=== PATIENT | female | born 1935 | race Caucasian/White ===

== ENCOUNTER 2024-08-11 13:31 | Inpatient (IN) | payer MEDICARE, OTHER ==
[2024-08-11] MEDS ORDERED: Ondansetron ODT 4 MG TAB PO PRN (14:39)
[2024-08-12] MEDS ORDERED: Non-Formulary Item 1 EACH (Atenolol [Atenolol] 100 MG Tablet) PO SCH (09:00)
[2024-08-12 09:55] LABS: #Basophils 0.1 thou/uL (0.0-0.2); #Eosinophils 0.1 thou/uL (0.0-0.7); #Lymphocytes 2.1 thou/uL (1.20-3.40); #Monocytes 0.7 thou/uL (0.11-0.59); #Neutrophils 3.7 thou/uL (1.40-6.50); %Basophils 0.9 % (0.0-1.0); %Eosinophils 1.9 % (0.0-10.0); %Lymphocytes 31.6 % (21.0-51.0); %Monocytes 10.2 % (0.0-10.0); %Neutrophils 55.4 % (42.0-75.0); Hematocrit 37.5 % (36.0-47.0); Hemoglobin 13.3 g/dL (12.0-16.0); Mean Corpuscular HGB CONC 35.4 g/dL (32.0-36.0); Mean Corpuscular Hemoglobin 32.5 pg (27.0-31.0); Mean Corpuscular Volume 91.9 fl (78.0-98.0); Mean Platelet Volume 6.8 fL (7.4-10.4); Platelet Count 342 10x3/uL (130-400); RBC Distribution Width 11.3 % (11.5-14.5); Red Blood Cell (RBC) Count 4.08 mill/uL (4.20-5.40); White Blood Cell (WBC) Count 6.7 10x3/uL (4.8-10.8)
[2024-08-12 10:19] LABS: ALT (SGPT) 12 U/L (Less than 34); AST (SGOT) 21 U/L (11-34); Albumin 3.6 g/dL (3.1-4.5); Alkaline Phosphatase 118 U/L (40-110); Anion Gap 12 mmol/L (10-20); BUN (Urea Nitrogen) 6 mg/dL (9.8-20.1); Bilirubin, Total 0.7 mg/dL (0.3-1.2); Calc. Creatinine Clearance 0 mL/min (70-130); Calcium 9.1 mg/dL (7.8-10.44); Carbon Dioxide 21 mmol/L (23-31); Chloride 98 mmol/L (98-107); Estimated GFR 89; Glucose 97 mg/dL (83-110); Potassium 4.3 mmol/L (3.5-5.1); Protein, Total 6.6 g/dL (5.8-8.1); Sodium 127 mmol/L (136-145)
[2024-08-12] MEDS ORDERED: Ipratropium/Albuterol 3 ML NEB NEB PRN (10:25)
[2024-08-12] MEDS: Nicotine 7 MG PATCH TD SCH (11:14)
[2024-08-12] MEDS: Nicotine 21 MG PATCH TD SCH (11:14)
[2024-08-12] MEDS: Lisinopril 5 MG TAB PO SCH (11:18)
[2024-08-12] MEDS: Famotidine 20 MG TAB PO SCH (11:18)
[2024-08-12] MEDS: Levothyroxine Sodium 112 MCG TAB PO SCH (11:18)
[2024-08-12] MEDS: Amlodipine 5 MG TAB PO SCH (11:19)
[2024-08-12] MEDS: Atorvastatin Calcium 40 MG TAB PO SCH (11:19)
[2024-08-12] MEDS: Nystatin Cream 15 GM TUBE TOP SCH (20:42)
[2024-08-13 06:06] LABS: #Basophils 0.1 thou/uL (0.0-0.2); #Eosinophils 0.2 thou/uL (0.0-0.7); #Lymphocytes 1.8 thou/uL (1.20-3.40); #Monocytes 0.9 thou/uL (0.11-0.59); #Neutrophils 4.4 thou/uL (1.40-6.50); %Basophils 1.3 % (0.0-1.0); %Eosinophils 2.4 % (0.0-10.0); %Lymphocytes 23.8 % (21.0-51.0); %Monocytes 12.5 % (0.0-10.0); %Neutrophils 60.1 % (42.0-75.0); Hematocrit 39.5 % (36.0-47.0); Mean Corpuscular HGB CONC 35.3 g/dL (32.0-36.0); Mean Corpuscular Hemoglobin 32.6 pg (27.0-31.0); Mean Corpuscular Volume 92.3 fl (78.0-98.0); Mean Platelet Volume 7.2 fL (7.4-10.4); Platelet Count 342 10x3/uL (130-400); RBC Distribution Width 11.5 % (11.5-14.5); Red Blood Cell (RBC) Count 4.28 mill/uL (4.20-5.40); White Blood Cell (WBC) Count 7.4 10x3/uL (4.8-10.8)
[2024-08-13 06:22] LABS: ALT (SGPT) 11 U/L (Less than 34); AST (SGOT) 19 U/L (11-34); Albumin 3.5 g/dL (3.1-4.5); Alkaline Phosphatase 114 U/L (40-110); Anion Gap 12 mmol/L (10-20); BUN (Urea Nitrogen) 5 mg/dL (9.8-20.1); Bilirubin, Total 0.6 mg/dL (0.3-1.2); Calc. Creatinine Clearance 77 mL/min (70-130); Calcium 9.1 mg/dL (7.8-10.44); Carbon Dioxide 22 mmol/L (23-31); Chloride 103 mmol/L (98-107); Estimated GFR 90; Globulin 2.9 g/dL (2.4-3.5); Glucose 89 mg/dL (83-110); Potassium 4.1 mmol/L (3.5-5.1); Protein, Total 6.4 g/dL (5.8-8.1); Sodium 133 mmol/L (136-145)
[2024-08-13] MEDS: Atenolol 25 MG TAB PO SCH (08:36)
[2024-08-13] MEDS ORDERED: Atenolol 25 MG TAB PO SCH (09:00)
[2024-08-13] MEDS: Melatonin 3 MG TAB PO PRN (21:40)
[2024-08-14] MEDS: Levothyroxine Sodium 112 MCG TAB PO SCH (09:49)
[2024-08-14] MEDS: Nicotine 7 MG PATCH TD SCH (10:00)
[2024-08-14] MEDS: Acetaminophen 325 MG TAB PO PRN (16:39)
[2024-08-15] MEDS: Levothyroxine Sodium 112 MCG TAB PO SCH (06:17)
[2024-08-17] MEDS: Melatonin 3 MG TAB PO SCH (20:03)
[2024-08-18] MEDS: Polyethylene Glycol 3350 17 GM Packet PO PRN (05:03)
[2024-08-18] MEDS: Senokot S 8.6-50 MG TAB PO PRN (07:53)
[2024-08-19 05:49] LABS: #Basophils 0.1 thou/uL (0.0-0.2); #Eosinophils 0.2 thou/uL (0.0-0.7); #Lymphocytes 1.9 thou/uL (1.20-3.40); #Monocytes 0.7 thou/uL (0.11-0.59); #Neutrophils 4.1 thou/uL (1.40-6.50); %Basophils 0.8 % (0.0-1.0); %Eosinophils 2.4 % (0.0-10.0); %Lymphocytes 26.9 % (21.0-51.0); %Monocytes 10.5 % (0.0-10.0); %Neutrophils 59.4 % (42.0-75.0); Hematocrit 42.5 % (36.0-47.0); Hemoglobin 13.7 g/dL (12.0-16.0); Mean Corpuscular HGB CONC 32.2 g/dL (32.0-36.0); Mean Corpuscular Hemoglobin 31.5 pg (27.0-31.0); Mean Corpuscular Volume 97.9 fl (78.0-98.0); Mean Platelet Volume 7.3 fL (7.4-10.4); Platelet Count 287 10x3/uL (130-400); Red Blood Cell (RBC) Count 4.34 mill/uL (4.20-5.40); White Blood Cell (WBC) Count 6.9 10x3/uL (4.8-10.8)
[2024-08-19 06:07] LABS: ALT (SGPT) 11 U/L (Less than 34); AST (SGOT) 18 U/L (11-34); Albumin 3.5 g/dL (3.1-4.5); Alkaline Phosphatase 105 U/L (40-110); Anion Gap 13 mmol/L (10-20); BUN (Urea Nitrogen) 14 mg/dL (9.8-20.1); Bilirubin, Total 0.6 mg/dL (0.3-1.2); Calc. Creatinine Clearance 70 mL/min (70-130); Calcium 9.4 mg/dL (7.8-10.44); Carbon Dioxide 22 mmol/L (23-31); Chloride 102 mmol/L (98-107); Estimated GFR 88; Glucose 106 mg/dL (83-110); Potassium 4.5 mmol/L (3.5-5.1); Protein, Total 6.5 g/dL (5.8-8.1); Sodium 132 mmol/L (136-145)
[2024-08-19] MEDS: Atenolol 25 MG TAB PO SCH (08:08)
[2024-08-21 06:18] VITALS: BMI 20.9
[2024-08-22] MEDS: Lidocaine 4% Patch TD SCH (08:57)
[2024-08-22] MEDS: Transdermal Patch Removal TOP SCH (20:33)
[2024-08-23 18:49] VITALS: BMI 20.9
[2024-08-24] MEDS: Guaifenesin DM 100-10/5 ML UDCUP PO PRN (15:10)
[2024-08-26 06:00] LABS: #Basophils 0.1 thou/uL (0.0-0.2); #Eosinophils 0.1 thou/uL (0.0-0.7); #Lymphocytes 2.2 thou/uL (1.20-3.40); #Monocytes 0.8 thou/uL (0.11-0.59); #Neutrophils 3.5 thou/uL (1.40-6.50); %Basophils 1.3 % (0.0-1.0); %Eosinophils 2.1 % (0.0-10.0); %Lymphocytes 32.7 % (21.0-51.0); %Monocytes 12.1 % (0.0-10.0); %Neutrophils 51.7 % (42.0-75.0); Hemoglobin 13.2 g/dL (12.0-16.0); Mean Corpuscular HGB CONC 33.8 g/dL (32.0-36.0); Mean Corpuscular Hemoglobin 32.1 pg (27.0-31.0); Mean Corpuscular Volume 95.1 fl (78.0-98.0); Mean Platelet Volume 7.8 fL (7.4-10.4); Platelet Count 261 10x3/uL (130-400); RBC Distribution Width 11.7 % (11.5-14.5); Red Blood Cell (RBC) Count 4.11 mill/uL (4.20-5.40); White Blood Cell (WBC) Count 6.7 10x3/uL (4.8-10.8)
[2024-08-26 06:21] LABS: ALT (SGPT) 16 U/L (Less than 34); AST (SGOT) 21 U/L (11-34); Albumin 3.4 g/dL (3.1-4.5); Alkaline Phosphatase 97 U/L (40-110); Anion Gap 10 mmol/L (10-20); BUN (Urea Nitrogen) 13 mg/dL (9.8-20.1); Bilirubin, Total 0.6 mg/dL (0.3-1.2); Calc. Creatinine Clearance 69 mL/min (70-130); Calcium 9.1 mg/dL (7.8-10.44); Carbon Dioxide 22 mmol/L (23-31); Chloride 100 mmol/L (98-107); Estimated GFR 89; Globulin 2.8 g/dL (2.4-3.5); Glucose 102 mg/dL (83-110); Potassium 4.4 mmol/L (3.5-5.1); Protein, Total 6.2 g/dL (5.8-8.1); Sodium 128 mmol/L (136-145)
[2024-08-26 08:02] VITALS: BP 112/67; TEMP 97.7
== END 2024-08-26 15:10 | disposition home health service (06) | DRG 945 ==
LOC: NAV ACUTE 08-12 09:09
PROVIDERS: ADMIT Student in an Organized Health Care Education/Training Program; ATTEND Student in an Organized Health Care Education/Training Program
PROC: F07Z9ZZ Gait Training/Functional Ambulation Treatment (ICD-10-PCS; principal; 2024-08-12)
DX: R53.81 Other malaise (principal); E87.1 Hypo-osmolality and hyponatremia; E78.5 Hyperlipidemia, unspecified; E03.9 Hypothyroidism, unspecified; J44.9 Chronic obstructive pulmonary disease, unspecified; R29.6 Repeated falls; Z66 Do not resuscitate; I10 Essential (primary) hypertension; N81.10 Cystocele, unspecified; N81.6 Rectocele; M81.0 Age-related osteoporosis without current pathological fracture; M16.11 Unilateral primary osteoarthritis, right hip; I71.40 Abdominal aortic aneurysm, without rupture, unspecified; F17.200 Nicotine dependence, unspecified, uncomplicated; Z85.3 Personal history of malignant neoplasm of breast; Z90.710 Acquired absence of both cervix and uterus; S22.080D Wedge compression fracture of T11-T12 vertebra, subsequent encounter for fracture with routine healing; S32.040D Wedge compression fracture of fourth lumbar vertebra, subsequent encounter for fracture with routine healing
CPT/HCPCS: 36415; 80053; 85025